=== PATIENT | male | born 1995 | race Caucasian/White ===

== ENCOUNTER 2024-03-12 11:52 | Inpatient (IN) | payer OTHER ==
[2024-03-12 12:17] VITALS: BMI 22.5
[2024-03-12] MEDS ORDERED: MAGNESIUM HYDROX 2400MG/30ML ORAL SUSPENSION 30 ML CUP PO PRN (13:00)
[2024-03-12] MEDS ORDERED: NICOTINE POLACRILEX 4 MG GUM BUC PRN (13:00)
[2024-03-12] MEDS ORDERED: MAG HYDROX/AL HYDROX/SIMETH 30 ML UNIT-DOSE CUP PO PRN (13:00)
[2024-03-12] MEDS ORDERED: IBUPROFEN 600 MG TABLET (FP) PO PRN (13:00)
[2024-03-12] MEDS ORDERED: POLYETHYLENE GLYCOL (HEALTHYLAX) 3350 17 GM PACKET PO PRN (13:00)
[2024-03-12] MEDS ORDERED: guaiFENesin 600 MG TABLET.ER (FP) PO PRN (13:00)
[2024-03-12] MEDS ORDERED: BENZOCAINE/MENTHOL (CHLORASEPTIC ) LOZENGE MM PRN (13:00)
[2024-03-12] MEDS ORDERED: IBUPROFEN 400 MG TABLET (FP) PO PRN (13:00)
[2024-03-12] MEDS ORDERED: NICOTINE POLACRILEX 4 MG LOZENGE BC PRN (13:00)
[2024-03-12] MEDS ORDERED: NALOXONE (NARCAN) HCL 4 MG/0.1 ML SPRAY NS PRN (13:00)
[2024-03-12] MEDS ORDERED: ACETAMINOPHEN 325 MG TABLET (FP) PO PRN (13:00)
[2024-03-12] MEDS ORDERED: LOPERAMIDE HCL 2 MG CAPSULE PO PRN (13:00)
[2024-03-12] MEDS ORDERED: BENZONATATE 200 MG CAPSULE PO PRN (13:00)
[2024-03-12] MEDS ORDERED: lamiVUDine 150 MG TABLET PO SCH (14:15)
[2024-03-12] MEDS ORDERED: DOLUTEGRAVIR SODIUM 50 MG TABLET (NON-FORMULARY) PO SCH (15:00)
[2024-03-12] MEDS: DOLUTEGRAVIR SODIUM 50 MG TABLET (NON-FORMULARY) PO SCH (15:10)
[2024-03-12] MEDS: hydrOXYzine PAMOATE 25 MG CAPSULE (FP) PO PRN (15:10)
[2024-03-12] MEDS: lamiVUDine 150 MG TABLET PO SCH (15:10)
[2024-03-12] MEDS: NICOTINE 21 MG/24 HOURS TOPICAL PATCH TD PRN (15:18)
[2024-03-12] MEDS: TUBERCULIN PPD 5 TU/0.1ML SYRINGE (IN PATIENT USE ONLY) ID ONE (17:07)
[2024-03-12 18:47] LABS: PH,URINE 7.5 (5.0-8.0); URINE APPEARANCE CLEAR; URINE BILIRUBIN NEGATIVE (NEGATIVE); URINE COLOR YELLOW; URINE GLUCOSE (UA) NEGATIVE (NEGATIVE); URINE KETONE NEGATIVE (NEGATIVE); URINE LEUK ESTERASE NEGATIVE (NEGATIVE); URINE NITRITE NEGATIVE (NEGATIVE); URINE PROTEIN NEGATIVE (NEGATIVE); URINE UROBILINOGEN 0.2 mg/dL (0.2-1.0)
[2024-03-12] MEDS: THIAMINE 100 MG TABLET PO SCH (21:34)
[2024-03-12] MEDS: MELATONIN 5 MG TABLETS PO SCH (21:34)
[2024-03-13 09:58] LABS: HEMATOCRIT 39.6 % (35.4-49); HEMOGLOBIN 13.7 GM/dL (11.7-16.9); MCH 31.1 pg (25.7-33.7); MCHC 34.6 g/dl (32.0-35.9); MEAN CELL VOLUME 89.8 fl (80-96); MEAN PLT VOLUME 8.6 fl (7.5-11.1); PLATELET COUNT 154 10^3/uL (134-434); RBC 4.41 M/mm3 (4.00-5.60); RDW 12.4 % (11.9-15.9); WHITE BLOOD COUNT 4.2 K/mm3 (4.0-10.0)
[2024-03-13 10:21] LABS: POTASSIUM 4.4 mmol/L (3.5-5.1)
[2024-03-13 10:26] LABS: ALBUMIN 3.5 g/dl (3.4-5.0)
[2024-03-13 10:30] LABS: BILIRUBIN,TOTAL 0.4 mg/dL (0.2-1); CALCIUM 8.8 mg/dL (8.5-10.1); TOT PROT 6.4 g/dl (6.4-8.2)
[2024-03-13 10:31] LABS: BLOOD UREA NITROGEN 13.8 mg/dL (7-18)
[2024-03-13] MEDS: PRENATAL VITAMINS W/ FOLIC ACID TABLET (FP) PO SCH (11:58)
[2024-03-13 12:11] LABS: SYPHILIS W/ RPR CONF REACTIVE (NONREACTIVE)
[2024-03-13] MEDS ORDERED: ARIPiprazole 15 MG TABLET PO SCH (12:15)
[2024-03-13] MEDS: FLU VACCINE (FLULAVAL) PF 45 MCG/0.5 ML SYRINGE 2024-2025 IM ONE (12:50)
[2024-03-13] MEDS: ARIPIPRAZOLE PO SCH (13:00)
[2024-03-13] MEDS: DEXTROAMPHETAMINE/AMPHETAMINE 10 MG CAP.ER.24H PO SCH (13:00)
[2024-03-13] MEDS: SUVOREXANT 10 MG TABLET PO PRN (21:28)
[2024-03-14] MEDS: DEXTROAMPHETAMINE/AMPHETAMINE 20 MG CAP.ER.24H PO SCH (10:01)
[2024-03-15 14:24] VITALS: RESP 18
[2024-03-16 06:52] VITALS: BP 120/84; PULSE 92; TEMP 97.9
[2024-03-16] MEDS: NALOXONE (NYS OPIOID OVERDOSE PROGRAM) 4 MG/0.1 ML SPRAY NS PRN (14:03)
== END 2024-03-16 14:05 | disposition home or self-care (01) | DRG 772 ==
LOC: YASAS 11:52 → Y3NR 12:37 → Y5N 03-14 11:08
PROVIDERS: ADMIT Surgery; ATTEND Psychiatry & Neurology Pain Medicine
PROC: HZ42ZZZ Group Counseling for Substance Abuse Treatment, Cognitive-Behavioral (ICD-10-PCS; principal; 2024-03-12)
DX: F15.20 Other stimulant dependence, uncomplicated (principal); F12.20 Cannabis dependence, uncomplicated; F17.210 Nicotine dependence, cigarettes, uncomplicated; F31.9 Bipolar disorder, unspecified; F19.282 Other psychoactive substance dependence with psychoactive substance-induced sleep disorder; F19.24 Other psychoactive substance dependence with psychoactive substance-induced mood disorder; Z21 Asymptomatic human immunodeficiency virus [HIV] infection status; R56.9 Unspecified convulsions
CPT/HCPCS: 36415; 80053; 80305; 80307; 81003; 85027; 86593; 86780; 86803; 87811; 90656; 93005; 93010; G0008